=== PATIENT | male | born 1990 | race Caucasian/White ===

== ENCOUNTER → 2016-06-11 | Outpatient (CLI) | payer OTHER ==
[2016-06-11 17:05] LABS: DAYS OF ABSTINENCE 4; METHOD OF COLLECTION MASTURBATION; SEMEN TIME OF COLLECTION 1550; TYPE OF SPECIMEN CONTAINER STERILE CUP
[2016-06-11 21:59] LABS: SEMEN COLOR GRAY OR GRAY-WHITE (GRY/GRYWHTE)
[2016-06-11 22:00] LABS: SPERM VIABILITY STAIN NOT INDICATED % (>58%)
== END | disposition home or self-care (01) ==
LOC: C.LAB 16:29
PROVIDERS: ATTEND Obstetrics & Gynecology
DX: N46.9 Male infertility, unspecified (principal)